=== PATIENT | female | born 1995 | race African-American/Black ===

== ENCOUNTER 2021-01-09 15:40 | Emergency (ER) | payer SELFPAY ==
[2021-01-09 16:54] LABS: HEMOGLOBIN 10.2 gm/dl (12.3-15.3); RED BLOOD COUNT 3.85 M/UL (4.00-5.10); WHITE BLOOD COUNT 8.5 K/UL (4.5-11.0)
[2021-01-09 17:24] LABS: BUN/CREATININE RATIO 12 (0-10)
[2021-01-09] MEDS ORDERED: TESSALON PERLE100 MG PO (18:52)
[2021-01-09] MEDS ORDERED: PROVENTIL HFA6.7 GM INH (18:52)
[2021-01-09] MEDS ORDERED: NASONEX17 GM (18:52)
== END 2021-01-09 19:09 | disposition home or self-care (01) ==
LOC: ER1 15:40
PROVIDERS: Physician Assistant
DX: J06.9 Acute upper respiratory infection, unspecified (principal); R07.9 Chest pain, unspecified; D64.9 Anemia, unspecified; Z88.0 Allergy status to penicillin
CPT/HCPCS: 71045; 80053; 82550; 82553; 83874; 84484; 85025; 93005; 99284; U0002